=== PATIENT | female | born 1990 | race Caucasian/White ===

== ENCOUNTER 2022-09-11 00:42 | Inpatient (IN) | payer OTHER ==
[~2022-09-11] VITALS: Ht 152.4 cm; Wt 69.4 kg
[2022-09-11] MEDS ORDERED: PRENATAL TABLE1 EAC1 (01:29)
[2022-09-11] MEDS ORDERED: CEPHALEXIN500 M1 PO (01:30)
[2022-09-11] MEDS ORDERED: PROBIOTIC250 MG (01:30)
[2022-09-20] MEDS ORDERED: CEFDINIR300 MG PO (07:45)
== END 2022-09-20 12:00 | disposition home or self-care (01) | DRG 832 ==
LOC: LDR 00:42 → OB/GYN 09-12 10:33
PROVIDERS: ADMIT Obstetrics & Gynecology Maternal & Fetal Medicine; ATTEND Obstetrics & Gynecology Maternal & Fetal Medicine
PROC: 4A1HXCZ Monitoring of Products of Conception, Cardiac Rate, External Approach (ICD-10-PCS; principal; 2022-09-11)
PROC: BW40ZZZ Ultrasonography of Abdomen (ICD-10-PCS; 2022-09-11)
PROC: 8E0ZXY6 Isolation (ICD-10-PCS; 2022-09-11)
DX: O99.891 Other specified diseases and conditions complicating pregnancy (principal); N13.39 Other hydronephrosis; O23.43 Unspecified infection of urinary tract in pregnancy, third trimester; N39.0 Urinary tract infection, site not specified; B96.5 Pseudomonas (aeruginosa) (mallei) (pseudomallei) as the cause of diseases classified elsewhere; Z3A.31 31 weeks gestation of pregnancy; Z20.822 Contact with and (suspected) exposure to COVID-19; N31.8 Other neuromuscular dysfunction of bladder

== ENCOUNTER 2022-09-29 10:01 | Outpatient (CLI) | payer OTHER ==
[~2022-09-29 10:01] MED LIST: CEFDINIR300 MG PO; CEPHALEXIN500 M1 PO; PRENATAL TABLE1 EAC1; PROBIOTIC250 MG
== END 2022-09-29 10:08 | disposition home or self-care (01) ==
LOC: SONOGRAMA 10:01
PROVIDERS: ATTEND Obstetrics & Gynecology Maternal & Fetal Medicine
DX: N13.30 Unspecified hydronephrosis (principal)

== ENCOUNTER 2022-09-30 20:12 | Inpatient (IN) | payer OTHER ==
[~2022-09-30] VITALS: Ht 152.4 cm; Wt 2.7 kg
[2022-09-30] MEDS ORDERED: PEPCID AC20 MG PO (20:53)
== END 2022-10-12 15:51 | disposition home or self-care (01) | DRG 787 ==
LOC: LDR 20:12 → OB/GYN 20:12 → LDR 22:39 → OB/GYN 10-01 10:04 → LDR 10-06 10:27 → O/R 10-06 18:49 → LDR 10-07 01:34 → OB/GYN 10-07 10:32
PROVIDERS: ADMIT Obstetrics & Gynecology; ATTEND Obstetrics & Gynecology
PROC: 4A1HXCZ Monitoring of Products of Conception, Cardiac Rate, External Approach (ICD-10-PCS; 2022-09-30)
PROC: 10D00Z1 Extraction of Products of Conception, Low, Open Approach (ICD-10-PCS; principal; 2022-10-06 17:15)
DX: O14.04 Mild to moderate pre-eclampsia, complicating childbirth (principal); N13.6 Pyonephrosis; O98.82 Other maternal infectious and parasitic diseases complicating childbirth; N39.0 Urinary tract infection, site not specified; O14.14 Severe pre-eclampsia complicating childbirth; O32.2XX0 Maternal care for transverse and oblique lie, not applicable or unspecified; O75.3 Other infection during labor; O60.14X0 Preterm labor third trimester with preterm delivery third trimester, not applicable or unspecified; N31.9 Neuromuscular dysfunction of bladder, unspecified; Z3A.34 34 weeks gestation of pregnancy; Z37.0 Single live birth; Z20.822 Contact with and (suspected) exposure to COVID-19